=== PATIENT | male | born 1955 | race Caucasian/White ===

== ENCOUNTER → 2017-02-08 | Outpatient (CLI) | payer BC ==
[2017-02-08 14:11] LABS: ALT/SGPT 24 U/L (12-78); BLOOD UREA NITROGEN 19 mg/dl (7-18); BUN/CREATININE RATIO 17.5 (10-20); CARBON DIOXIDE 29 mmol/L (21-32); CHLORIDE 105 mmol/L (98-107); GLUCOSE 109 mg/dl (70-99); POTASSIUM 3.7 mmol/L (3.5-5.1); SODIUM 141 mmol/L (136-145)
[2017-02-08 14:17] LABS: CALCIUM 9.3 mg/dl (8.5-10.1)
[2017-02-08 14:19] LABS: % FREE PSA 17.8 %; CHOLESTEROL 190 mg/dl (0-200); CHOLESTEROL/HDL RATIO 3.4; FREE PSA 1.78 ng/ml; HDL CHOLESTEROL 56 mg/dl; LDL CHOLESTEROL CALCULATED 116 mg/dl; TRIGLYCERIDES 92 mg/dl (0-150); VERY LOW DENSITY LIPOPROT CALC 18 mg/dl
== END | disposition home or self-care (01) ==
LOC: C.LABMFLN 11:54
PROVIDERS: ATTEND Family Medicine
DX: I10 Essential (primary) hypertension (principal); E78.00 Pure hypercholesterolemia, unspecified; R97.20 Elevated prostate specific antigen [PSA]

== ENCOUNTER → 2017-03-21 | Outpatient (CLI) | payer BC ==
[2017-03-21 18:16] LABS: % FREE PSA 17.2 %; FREE PSA 2.13 ng/ml; PROSTATE SPECIFIC ANTIGEN 12.4 ng/ml (0.000-4.000)
== END | disposition home or self-care (01) ==
LOC: C.LABMFLN 14:01
PROVIDERS: ATTEND Family Medicine
DX: R97.20 Elevated prostate specific antigen [PSA] (principal)

== ENCOUNTER → 2017-07-19 | Outpatient (CLI) | payer BC ==
[2017-07-19 16:43] LABS: BLOOD UREA NITROGEN 20 mg/dl (7-18); BUN/CREATININE RATIO 20.3 (10-20)
== END | disposition home or self-care (01) ==
LOC: C.LABBC 14:09
PROVIDERS: ATTEND Urology
DX: R97.20 Elevated prostate specific antigen [PSA] (principal)

== ENCOUNTER → 2017-07-26 | Outpatient (CLI) | payer BC ==
[~2017-07-26] MED LIST: GADAVIST IV PRN
--- NOTE | 2017-07-26 15:23 | DIAGNOSTIC IMAGING REPORT ---
PROSTATE MRI COMBO CLINICAL HISTORY: 62 years-old Male presenting with ELEVATED PSA. PSA 12.4 ng/mL. TECHNIQUE: Multisequence, multiplanar MR imaging of the prostate was performed before and after the administration of intravenous contrast. Additional postprocessing was performed on a separate [employer] workstation by the radiologist for 3-D volumetric segmentation of the prostate and contouring of region(s) of interest (STELLA) for targeting. IV contrast: 9 mL of Gadavist. COMPARISON: None. FINDINGS: Prostate: The prostate measures 5.6 x 5.4 x 6.1 cm (DynaCAD prostate boundary segmentation volume 93 mL). Moderate changes of benign prostatic hyperplasia. Precontrast T1 weighted imaging demonstrates no evidence of intrinsic T1 hyperintensity to suggest hemorrhage. Relative atrophy of the right seminal vesicle. Suspicious lesion(s) described below: Lesion (DynaCAD STELLA) 1: Location: Left anterior transition zone at the mid gland to apex. The lesion does not extend across the midline. Size: 12 mm (as measured on ADC for PZ lesion and T2WI for TZ lesion) T2W: 4. Noncircumscribed, homogeneous, moderately hypointense. No evidence of extraprostatic extension. DWI: 3. Focal mildly/moderately hypointense on ADC and isointense/mildly hyperintense on high b-value DWI. DCE: Positive. Focal enhancement corresponding to a suspicious finding, earlier or contemporaneous with adjacent normal tissue. PI-RADS: 4. Clinically significant cancer is likely to be present. Lesion (DynaCAD STELLA) 2: Location: Right anterior transition zone at the mid gland. The lesion does not extend across the midline. Size: 11 mm (as measured on ADC for PZ lesion and T2WI for TZ lesion) T2W: 3. Ill-defined, heterogeneous, mildly hypointense. No evidence of extraprostatic extension. DWI: 3. Focal mildly/moderately hypointense on ADC and isointense/mildly hyperintense on high b-value DWI. DCE: Positive. Focal enhancement corresponding to a suspicious finding, earlier or contemporaneous with adjacent normal tissue. PI-RADS: 3. The presence of clinically significant cancer is equivocal. Bladder: Bladder wall thickening likely indicating chronic outlet obstruction. Bowel: Visualized portion of the rectum normal. Peritoneum: No free fluid in the pelvis. Lymph nodes: No lymphadenopathy in the visualized portion of the pelvis. Vasculature: Iliac vessels patent. Osseous structures: Normal bone marrow signal intensity. IMPRESSION: 1. 12 mm lesion in the left anterior transition zone at the mid gland to apex. PI-RADS 4. Clinically significant cancer is likely to be present. This lesion has been segmented for targeted biopsy. 2. 11 mm lesion in the right anterior transition zone at the mid gland. PI-RADS 3. The presence of clinically significant cancer is equivocal. This lesion has been segmented for targeted biopsy. 3. Benign prostatic hyperplasia. Electronically signed by: Zhang Healy M.D. 07/26/2017 3:22 PM Dictated Date/Time: 07/26/2017 3:05 PM
== END | disposition home or self-care (01) ==
LOC: C.MRIBC 13:38
PROVIDERS: ATTEND Urology
DX: R97.20 Elevated prostate specific antigen [PSA] (principal); N40.0 Benign prostatic hyperplasia without lower urinary tract symptoms

== ENCOUNTER → 2017-11-25 | Outpatient (CLI) | payer BC | END | disposition home or self-care (01) | LOC: C.PATHSPEC 14:45 | PROVIDERS: ATTEND Urology | DX: R97.20 Elevated prostate specific antigen [PSA] (principal) ==

== ENCOUNTER → 2018-02-08 | Outpatient (CLI) | payer BC ==
[2018-02-08 19:48] LABS: BLOOD UREA NITROGEN 21 mg/dl (7-18); CALCIUM 9.1 mg/dl (8.5-10.1); CARBON DIOXIDE 31 mmol/L (21-32); CHOLESTEROL 178 mg/dl (0-200); CREATININE 1.22 mg/dl (0.60-1.40); GLUCOSE 103 mg/dl (70-99); POTASSIUM 4.3 mmol/L (3.5-5.1); SODIUM 140 mmol/L (136-145)
[2018-02-08 19:53] LABS: LDL CHOLESTEROL CALCULATED 105 mg/dl
== END | disposition home or self-care (01) ==
LOC: C.LABMFLN 11:38
PROVIDERS: ATTEND Family Medicine
DX: I10 Essential (primary) hypertension (principal); E78.00 Pure hypercholesterolemia, unspecified; R97.20 Elevated prostate specific antigen [PSA]